=== PATIENT | female | born 1980 | race Caucasian/White ===

== ENCOUNTER 2019-11-01 20:00 | Emergency (ER) | payer SELFPAY ==
[2019-11-01 20:05] VITALS: BP 129/89; PULSE 105; RESP 18; TEMP 36.4; O2SAT 100
--- NOTE | 2019-11-01 20:30 | ED.BACK ---
HPI - Back Pain/Injury General Chief Complaint: Back Pain/Injury Stated Complaint: R lower back pain Time Seen by Provider: 11/01/19 20:06 Source: patient Mode of arrival: ambulatory Limitations: no limitations History of Present Illness HPI Narrative: Patient is a 39-year-old female who presents to the emergency department with complaint of low back pain. Patient reports onset of symptoms approximately 2 to 3 weeks ago. Patient reports being given a cortisone shot and started on a steroid a couple of weeks ago which seemed to help some, but symptoms have returned and worsened. Patient locates the pain diffusely across the lumbar region with radiation to the right hip. Patient states symptoms are worse after wearing high heels to a today. Patient is from [place] and states she has an appointment to see her primary care physician next. MD elicited complaint: back pain Pertinent past history: prior back pain (Intermittent 8 years) Onset (ago): week(s) (Current episode past 2 to 3 weeks) Timing: constant (Briefly improved with steroids, now worsening again) Quality: sharp Location: lumbar spine Radiation: right upper leg (hip) Exacerbating factors: movement Relieving factors: none Context: unknown Associated symptoms: denies other symptoms Treatments prior to arrival: acetaminophen and other medications (Corticosteroids) Related Data Allergies Allergy/AdvReac Type Severity Reaction Status Date / Time No Known Allergies Allergy Verified 11/01/19 21:41 Review of Systems Review of Systems: All systems reviewed & are unremarkable except as noted in HPI and below PMFSH Past Medical History Medical History (Updated 11/01/19 @ 21:40 by Khadra Robles MD) No significant past medical history Surgical History Surgical History (Updated 11/01/19 @ 20:32 by Khadra Robles MD) History of cholecystectomy History of hysterectomy Social History Social History (Updated 11/01/19 @ 20:33 by Khadra Robles MD) Additional living arrangements comments: Lives in [facility] Exam Const: General: cooperative, no acute distress and alert Nutritional Appearance: well nourished Orientation/consciousness: patient oriented x3 Limitations: no limitations HENMT: Mouth: Yes lip normal and Yes moist mucous membranes Resp: Effort & Inspection: normal respiratory effort Auscultation: clear to auscultation bilaterally Cardio: Rate: regular rate Rhythm: regular rhythm GI: GI Palp: Yes Soft to palpation and No Tenderness to palpation present (GI) Auscultation: normal bowel sounds Back/Spine/Pelvis: Thoracic/Lumbar Spine: pain with thoraco-lumbar ROM, paraspinal muscle tenderness, thoraco-lumbar ROM limited, thoraco-lumbar spasm and lumbar spinal tenderness Skin: General skin exam: normal color Neuro: General: patient oriented x3 Cognition (Neuro): normal cognition Speech: normal speech Motor exam (neuro): 5/5 motor strength present throughout Sensory Exam: normal sensation Deep tendon reflexes (DTR's): Right patellar reflex intensity grade: 2+, Left patellar reflex intensity grade: 2+, Right ankle reflex intensity grade: 2+ and Left ankle reflex intensity grade: 2+ Extrem: General: normal to inspection, full ROM and no clubbing, cyanosis or edema Psych: Mental Status: mental status grossly normal Affect: normal affect Attitude: cooperative Course Course Emergency Course: Patient given Toradol and Valium. Advised importance of follow-up at her primary care appointment to discuss physical therapy referral which would be the most beneficial thing to help her symptoms. Advised her primary care could determine if she requires any test or further work-up. Vital Signs Vital signs: Vital Signs Temperature 97.6 F 11/01/19 20:05 Pulse Rate 105 H 11/01/19 20:05 Respiratory Rate 18 11/01/19 20:05 Blood Pressure 129/89 11/01/19 20:05 Pulse Oximetry 100 11/01/19 20:05 Temperature 97.6 F
[2019-11-01] MEDS: KETOROLAC (*BKC) 60 MG/2 ML VIAL IM (21:07)
[2019-11-01 21:11] VITALS: BP 109/85; PULSE 92; RESP 16; O2SAT 97
== END 2019-11-01 21:50 | disposition home or self-care (01) ==
PROVIDERS: Emergency Provider Emergency Medicine
DX: M62.830 Muscle spasm of back (principal); M54.41 Lumbago with sciatica, right side
CPT/HCPCS: 96372; 99284; J1885; J3360